=== PATIENT | female | born 1985 | race Asian ===

== ENCOUNTER 2024-09-12 18:43 | Emergency (ER) | payer BC, SELFPAY ==
[2024-09-12 18:46] VITALS: BP 138/92
[2024-09-12 19:08] LABS: % Basophils 0.5 % (0-2); % Eosinophils 1.4 % (0-6); % Lymphocytes 29.3 % (20.5-51.1); % Monocytes 7.1 % (1.7-9.3); % Neutrophils 61.7 % (42.2-75.2); Absolute Eosinophils 0.1 10^3/uL (0-0.7); Absolute Lymphocytes 1.7 10^3/uL (1.2-3.4); Absolute Monocytes 0.4 10^3/uL (0.1-0.6); Absolute Neutrophils 3.5 10^3/uL (1.4-6.5); Hematocrit 37.1 % (37.0-47.0); Hemoglobin 12.6 g/dL (12.0-16.0); Mean Corpuscular Hgb 28.4 pg (27.0-31.0); Mean Corpuscular Volume 83.6 fL (81.0-99.0); Mean Platelet Volume 10.5 fL (7.4-10.4); Nucleated Red Blood Cells % 0 %; Platelet Count 221 10^3/uL (130-400); Red Blood Cell Count 4.44 10^6/uL (4.20-5.40); White Blood Cell Count 5.7 10^3/uL (4.8-10.8)
[2024-09-12 19:31] LABS: ALT (SGPT) 28 U/L (0-35); AST (SGOT) 22 U/L (14-36); Albumin 4.6 g/dl (3.5-5.0); Alkaline Phosphatase 52 U/L (38-126); Blood Urea Nitrogen 18 mg/dl (7-17); Calcium 9.4 mg/dl (8.4-10.2); Carbon Dioxide 27 mmol/L (22-30); Chloride 104 mmol/L (98-107); Glucose 94 mg/dl (70-99); Lipase 125 U/L (23-300); Potassium 4.1 mmol/L (3.5-5.1); Sodium 139 mmol/L (135-145); Total Bilirubin 0.9 mg/dl (0.2-1.3); Total Protein 7.7 g/dl (6.3-8.2); eGFR > 60.00
--- NOTE | 2024-09-12 20:10 | ED.GENMED ---
History of Present Illness
General
Chief Complaint: Abdominal Pain
Time Seen by Provider: 09/12/24 20:10
History of Present Illness
History of Present Illness:
TIME OF INITIAL ENCOUNTER: 8:10 PM
HPI: The patient presents with upper abdominal discomfort over the last few days. This feels somewhat similar to the time 2 years ago when she had portal vein thrombosis. At that time she was admitted to the hospital and was on heparin and then
Eliquis. At that time she was also on NuvaRing. A few weeks ago, she started using a low-dose estrogen cream for vaginal dryness. She now has pain very similar to what happened 2 years ago.
EXAM:
GENERAL: Well appearing in no distress
HEENT: Moist oral mucosa
CARDIOVASCULAR: No murmurs, normal heart rate, regular rhythm, No chest wall tenderness
PULMONARY: No respiratory distress, breath sounds are clear and equal
ABDOMEN: Soft with no peritoneal signs, minimal if any upper abdominal tenderness
NEUROLOGIC: Excellent strength all extremities, no coordination deficits
PSYCHIATRIC: Appropriate mental status, normal insight and judgement
EXTREMITIES: Nontender, no edema, moves all extremities equally
SKIN: No rash, no lesions
NUMBER AND COMPLEXITY OF PROBLEMS ADDRESSED AT THE ENCOUNTER
� Chronic conditions affecting care: She is on Eliquis for history of portal vein thrombosis
� Acute Exacerbation and/or Progression of Chronic Illness: This is an acute recurring problem
� Differential Diagnosis includes: Recurrence of portal vein thrombosis, viral syndrome, anemia
AMOUNT AND/OR COMPLEXITY OF DATA TO BE REVIEWED AND ANALYZED
� I performed an independent evaluation of and my interpretation is:
EKG:
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
liver
X-rays:
Laboratory Studies: CBC and chemistries unremarkable
Other:
� Review of other/old records: I reviewed records including when patient was admitted here for portal vein thrombosis in 2022 for baseline health
� Clinical information was obtained by an independent historian: None needed
� Prescriptions/Medications Considered but not given:
� Further testing considered but not performed:
RISK OF COMPLICATIONS AND/OR MORBIDITY OR MORTALITY OF PATIENT MANAGEMENT
� Social determinants of health affecting care: Lives at home
� Discussion with other providers: I spoke to Dr. Mansfield. Ultimately, he recommends going back on anticoagulation.
� Escalation of care including admission/observation vs risk of discharge considered: She is to follow-up with Dr. Sosa. Clot noted in portal vein described as chronic by radiology, of note D-dimer obtained which was less
than 0.27.
ANY OTHER UPDATES:
Past History
Past History
ED Past Medical History: None
ED Past Surgical History:
Social History
Tobacco: Non-smoker
Alcohol: Occasional
Drug: None
Phy Exam
Physical Exam
Physical Exam:
See HPI
Course
Orders/Labs/Results
Orders:
Orders
09/12/24 18:49
ECG [Electrocardiogram (*1)] Urgent
Reason for Study: Abdominal Pain
EKG- Treatment ONCE
09/12/24 18:58
Complete Blood Count/With Diff Urgent
Comprehensive Metabolic Panel Urgent
HCG, Serum Qualitative Screen Urgent
Comment: ADD ON
Lipase Urgent
09/12/24 20:11
CT Abd/pelvis W Iv Cont Urgent
Comment:
Reason For Exam: pain; h/o portal vein thrombosis
09/12/24 20:17
Add On- LAB Urgent
Tests Added?: hcg blood screen
09/12/24 22:29
D-Dimer Urgent
09/12/24 22:47
Apixaban [Eliquis] 5 mg PO NOW STA
09/12/24 22:50
Apixaban [Eliquis] 10 mg PO NOW STA
Abnormal Lab Results
09/12/24
18:58
MPV 10.5 H fL
(7.4-10.4)
BUN 18 H mg/dl
(7-17)
09/12/24 18:58
09/12/24 18:58
Vital Signs
Initial and Last Documented VS:
Initial Vital Signs
Temp Pulse Resp BP Pulse Ox
36.8 C 98 20 138/92 97
09/12/24 18:46 09/12/24 18:46 09/12/24 18:46 09/12/24 18:46 09/12/24 18:46
Last Documented Vital Signs
Temp Pulse Resp BP Pulse Ox
36.8 C 65 16 106/62 99
09/12/24 18:46 09/12/24 23:07 09/12/24 23:07 09/12/24 23:07 09/12/24 23:07
*Critical Care Note
Total Time (30-74mins, 75-104mins- exclusive of procedures): Not Applicable
ED Attending Note
-
Portions of this chart may have been created with voice recognition software.� Occasional wrong word or��sound alike� substitutions may have occurred due to the inherent limitations of voice recognition software.
Discharge Plan
Departure
Patient Disposition: Home (Routine Discharge)
Date of Disposition: 09/12/24
Time of Disposition: 22:43
Patient with high blood pressure during this ER visit?: Yes
Discharge Problem:
Portal vein thrombosis
Instructions: BLOOD PRESSURE
Prescriptions:
New
Eliquis 5 mg tablet
5 mg PO BID Qty: 74 0RF
No Action
Probiotic 3 billion cell Capsule
3,000 mmu cells PO QPM
Eliquis 5 mg Tablet
5 mg PO BID Qty: 60 0RF
Referrals:
Fabricio Akhtar DO [Active] - Next open appointment
Marylu Kovacs CRNP [Family Provider] -
Activity Restrictions/Additional Instructions:
Your complete blood cell count and chemistry levels including your liver numbers as well as your hCG test are all negative. 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
superior mesenteric vein, and splenic vein are all patent'. Fatty liver is also noted to the right side of the liver. I spoke to Dr. Mansfield initially thought about not placing on anticoagulation but later decided that we should just try the
anticoagulation again. I would like you to see Dr. Akhtar and call their office for follow-up.
For the first week, take two 5 mg Eliquis tablets twice daily then after the first week take one 5 mg Eliquis tablet twice daily.
Interventions
Interventions:
*Risk Screen - Suicide Last Done: 09/12/24 20:38
*General Assessment Last Done: 09/12/24 18:46
*Neglect/Abuse Screening Last Done: 09/12/24 20:38
*ED- Fall Risk Assessment Last Done: 09/12/24 20:38
*ED COVID-19 Vaccine History Last Done: 09/12/24 20:38
*Nursing Disposition Last Done: 09/12/24 23:09
GJ-Ialome-Hgxznhwrjl Assessment Last Done: 09/12/24 20:37
Discharge Date and Time
Discharge Date/Time: 09/12/24 23:10
Print Language: MEXICAN
[2024-09-12 20:38] VITALS: BMI 23.8
[2024-09-12 20:53] LABS: HCG, Serum Qualitative Screen Negative
[2024-09-12 21:25] VITALS: BP 118/80
[2024-09-12 22:58] LABS: D-Dimer < 0.27 ug/mlFEU (0.00-0.50)
[2024-09-12] MEDS: ELIQUIS 10 MG PO (23:04)
[2024-09-12 23:07] VITALS: BP 106/62
== END 2024-09-12 23:10 | disposition home or self-care (01) ==
LOC: EMR 18:43
PROVIDERS: EMERGENCY PHYSICIAN Emergency Medicine; FAMILY PHYSICIAN Nurse Practitioner Adult Health
DX: I81 Portal vein thrombosis (principal); Z98.891 History of uterine scar from previous surgery
CPT/HCPCS: 99284; 74177; 80053; 83690; 84703; 85025; 85379; 93005; Q9967

== ENCOUNTER → 2024-09-20 11:25 | Outpatient (REF) | payer BC, SELFPAY | LOC: HWRAD 11:25 | PROVIDERS: ATTENDING PHYSICIAN Internal Medicine Hematology & Oncology; FAMILY PHYSICIAN Nurse Practitioner Adult Health | DX: I81 Portal vein thrombosis (principal) | CPT/HCPCS: 76700 ==